=== PATIENT | female | born 1945 | race Hispanic/Latino ===

== ENCOUNTER → 2018-02-08 | Outpatient (CLI) | payer OTHER, MEDICARE | END | disposition home or self-care (01) | LOC: RAH 09:12 | PROVIDERS: ATTEND Family Medicine | DX: M77.31 Calcaneal spur, right foot (principal); M25.871 Other specified joint disorders, right ankle and foot | CPT/HCPCS: 73600 ==

== ENCOUNTER → 2020-05-25 | Outpatient (CLI) | payer OTHER | END | disposition home or self-care (01) | LOC: RAH 10:40 | PROVIDERS: ATTEND Family Medicine | DX: Z12.31 Encounter for screening mammogram for malignant neoplasm of breast (principal) | CPT/HCPCS: 77067 ==

== ENCOUNTER → 2023-08-04 | Outpatient (CLI) | payer OTHER | END | disposition home or self-care (01) | LOC: RAH 10:31 | PROVIDERS: ATTEND Family Medicine | DX: Z12.31 Encounter for screening mammogram for malignant neoplasm of breast (principal); Z00.01 Encounter for general adult medical examination with abnormal findings | CPT/HCPCS: 77067 ==

== ENCOUNTER → 2023-09-07 | Outpatient (CLI) | payer OTHER | END | disposition home or self-care (01) | LOC: RAH 13:05 | PROVIDERS: ATTEND Orthopaedic Surgery | DX: I70.201 Unspecified atherosclerosis of native arteries of extremities, right leg (principal); M17.11 Unilateral primary osteoarthritis, right knee | CPT/HCPCS: 93926 ==

== ENCOUNTER → 2024-08-23 | Outpatient (CLI) | payer OTHER | END | disposition home or self-care (01) | LOC: RAH 12:56 | PROVIDERS: ATTEND Family Medicine | DX: Z12.31 Encounter for screening mammogram for malignant neoplasm of breast (principal); R92.323 Mammographic fibroglandular density, bilateral breasts; R92.30 Dense breasts, unspecified | CPT/HCPCS: 77067 ==

== ENCOUNTER → 2024-09-18 | Outpatient (CLI) | payer OTHER, MEDICARE ==
[~2024-09-18] MED LIST: ceFAZolin SODIUM 1 GM VIAL ONE
--- NOTE | 2024-09-18 15:01 | HMCIMG ---
PROCEDURE: MAMMO DX UNILATERAL RIGHT, US BREAST COMPLETE UNILATERAL HISTORY: Abnormal mammogram COMPARISON: None TECHNIQUE: Right breast digital diagnostic mammogram with CAD was performed. Additional cone compression views of right breast were obtained. Right breast ultrasound study was performed. FINDINGS: The breasts are heterogeneously dense, which may obscure small masses. Coned compression view of right breast show persistent nodular density near 9:00. There is a right breast cyst in the ultrasound study at 9:00 measuring 4 x 3 x 4. There is intramammary lymph node at 8:00 of right breast measuring 7 x 3 x 8 mm. There is no other evidence of a dominant mass, or suspicious microcalcification. There is no evidence of nipple retraction or skin thickening. Right axillary lymph nodes are seen with the largest measuring 14 x 7 mm. IMPRESSION: 1. Right breast cyst at 9:00 measuring 4 x 3 x 4 mm. Intramammary lymph node at 8:00 of right breast measuring 7 x 15 mm. Recommend yearly mammogram. BI-RADS: CATEGORY 2: BENIGN FINDINGS Recommend monthly self breast exam as well as annual clinical examination. A negative x-ray should not delay biopsy if a dominant or clinically suspicious mass is present, since 8-10% of cancers are not identified by mammography. Dense breasts particularly, may obscure an underlying neoplasm. Some of these may be detected clinically and therefore, clinical examination is an essential part of breast evaluation.
== END | disposition home or self-care (01) ==
LOC: RAH 10:10
PROVIDERS: ATTEND Family Medicine
DX: N60.01 Solitary cyst of right breast (principal); R92.331 Mammographic heterogeneous density, right breast; R92.8 Other abnormal and inconclusive findings on diagnostic imaging of breast
CPT/HCPCS: 76641; 77065; J0690

== ENCOUNTER → 2025-08-27 | Outpatient (CLI) | payer OTHER, MEDICARE | END | disposition home or self-care (01) | LOC: RAH 11:32 | PROVIDERS: ATTEND Family Medicine | DX: Z12.31 Encounter for screening mammogram for malignant neoplasm of breast (principal) | CPT/HCPCS: 77067 ==

== ENCOUNTER → 2025-09-24 | Outpatient (CLI) | payer OTHER, MEDICARE ==
--- NOTE | 2025-10-01 11:10 | HMCIMG ---
BILATERAL BREAST ULTRASOUND: CLINICAL HISTORY: Follow-up for dense breasts from mammogram from 09/18/2024. COMPARISON: Prior sonogram from 09/18/2024 demonstrate right breast has fibrocystic changes. Finding: Real-time examination of the both breasts demonstrates heterogeneous echotexture throughout both the breasts without evidence of focal solid or cystic masses. Left axilla has a benign-appearing lymph node measuring 1.1 x 0.4 x 1.0 cm. IMPRESSION: Dense breasts with no solid or cystic lesion seen. I would recommend annual mammography with tomography with bilateral breast sonogram. FINAL ASSESSMENT: ACR: BI-RAD- 2. Benign Finding.
== END | disposition home or self-care (01) ==
LOC: RAH 11:51
PROVIDERS: ATTEND Family Medicine
DX: R92.333 Mammographic heterogeneous density, bilateral breasts (principal); R92.8 Other abnormal and inconclusive findings on diagnostic imaging of breast

== ENCOUNTER → 2025-10-27 | Outpatient (CLI) | payer OTHER, MEDICARE ==
--- NOTE | 2025-10-28 09:12 | HMCIMG ---
EXAMINATION: CT Left Lower Extremity without intravenous contrast CLINICAL HISTORY: Left knee osteoarthritis. COMPARISON: None. TECHNIQUE: Multidetector CT of the left lower extremity performed without intravenous contrast. CONTRAST: None. 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 Advanced medial and mild lateral femorotibial joint space narrowing accompanies subchondral sclerosis, cystic changes, moderate-sized medial and lateral femorotibial marginal osteophytes, and intercondylar spurring. Moderate patellofemoral osteoarthritis includes marginal osteophytes. A few chondral loose bodies appear along the popliteus myotendinous junction. No acute fracture or aggressive osseous lesion. SOFT TISSUES Unremarkable. IMPRESSION:No acute findings. Advanced left hip and knee osteoarthritis. /[place]
== END | disposition home or self-care (01) ==
LOC: RAH 10:35
PROVIDERS: ATTEND Orthopaedic Surgery
DX: M17.12 Unilateral primary osteoarthritis, left knee (principal); M16.12 Unilateral primary osteoarthritis, left hip; M25.762 Osteophyte, left knee; M25.562 Pain in left knee; G89.29 Other chronic pain
CPT/HCPCS: 73700